=== PATIENT | female | born 2000 | race Caucasian/White ===

== ENCOUNTER → 2019-05-24 | Emergency (ER) | payer OTHER ==
[2019-05-24] MEDS: IBUPROFEN 800 MG TAB PO (13:14)
== END | disposition home or self-care (01) ==
LOC: FTE 12:43
DX: S82.044A Nondisplaced comminuted fracture of right patella, initial encounter for closed fracture (principal); S80.212A Abrasion, left knee, initial encounter; F17.210 Nicotine dependence, cigarettes, uncomplicated; W10.9XXA Fall (on) (from) unspecified stairs and steps, initial encounter; Y92.9 Unspecified place or not applicable
CPT/HCPCS: 29505; 73562; 99283-25